=== PATIENT | male | born 1960 | race Hispanic/Latino ===

== ENCOUNTER 2020-05-28 20:35 | Emergency (ER) | payer OTHER ==
[2020-05-28] MEDS ORDERED: MORPHINE SULFATE 4 MG/1ML SYG ONE (22:03)
== END 2020-05-29 05:48 | disposition home or self-care (01) ==
LOC: EDH 20:35
DX: G89.18 Other acute postprocedural pain (principal); M79.605 Pain in left leg; I10 Essential (primary) hypertension; E78.00 Pure hypercholesterolemia, unspecified; Z89.422 Acquired absence of other left toe(s); Z89.421 Acquired absence of other right toe(s)
CPT/HCPCS: 96372; 99283; J2270